=== PATIENT | female | born 1980 | race Caucasian/White ===

== ENCOUNTER 2018-10-29 09:18 | Day surgery (SDC) | payer OTHER | END 2018-10-29 16:15 | disposition home or self-care (01) | LOC: CIR.AMB 09:18 | DX: O02.1 Missed abortion (principal); Z3A.01 Less than 8 weeks gestation of pregnancy ==

== ENCOUNTER 2019-12-08 12:03 | Outpatient (CLI) | payer OTHER | END 2019-12-08 12:55 | disposition home or self-care (01) | LOC: NST 12:03 | DX: Z34.83 Encounter for supervision of other normal pregnancy, third trimester (principal) ==

== ENCOUNTER 2020-01-21 09:00 | Inpatient (IN) | payer OTHER ==
[~2020-01-21] VITALS: Ht 162.6 cm; Wt 80.7 kg
[2020-01-31] MEDS ORDERED: PRENATAL + DHA1 EAC1 PO (02:35)
== END 2020-02-01 14:37 | disposition home or self-care (01) | DRG 807 ==
LOC: OB/GYN 01-30 01:05 → LDR 01-30 01:05 → OB/GYN 01-30 08:33 → LDR 02-11 09:00
PROVIDERS: ADMIT Obstetrics & Gynecology; ATTEND Obstetrics & Gynecology
PROC: 10E0XZZ Delivery of Products of Conception, External Approach (ICD-10-PCS; principal; 2020-01-30)
PROC: 3E033VJ Introduction of Other Hormone into Peripheral Vein, Percutaneous Approach (ICD-10-PCS; 2020-01-30)
PROC: 4A1HXFZ Monitoring of Products of Conception, Cardiac Rhythm, External Approach (ICD-10-PCS; 2020-01-30)
PROC: 0HQ9XZZ Repair Perineum Skin, External Approach (ICD-10-PCS; 2020-01-30)
DX: O70.0 First degree perineal laceration during delivery (principal); Z37.0 Single live birth; Z3A.37 37 weeks gestation of pregnancy; M41.56 Other secondary scoliosis, lumbar region

== ENCOUNTER 2020-01-26 10:33 | Outpatient (CLI) | payer OTHER | END 2020-01-26 11:08 | disposition home or self-care (01) | LOC: NST 10:33 | PROVIDERS: ATTEND Obstetrics & Gynecology | DX: Z34.83 Encounter for supervision of other normal pregnancy, third trimester (principal) ==